=== PATIENT | female | born 1930 | race Caucasian/White ===

== ENCOUNTER 2018-12-16 09:26 | Day surgery (SDC) | payer MEDICARE, BC ==
[2018-12-16 10:34] VITALS: TEMP 98
[2018-12-16 11:11] VITALS: BP 147/67; PULSE 70; RESP 16
--- NOTE | 2018-12-16 12:07 | US ---
ULTRASOUND GUIDED FNA THYROID BIOPSY: CLINICAL HISTORY: Bilateral thyroid cysts FINDINGS: The procedure was explained to the patient. The risks, complications, benefits and alternatives were discussed and any questions were answered. Informed consent was obtained. Patient was placed supin e on the ultrasound table and prepped and draped in the usual sterile fashion. Utilizing a 25 gauge needle, access was achieved within the right thyroid cyst and subsequently left thyroid cyst and flui d was aspirated and sent to pathology for analysis. Patient was stable throughout the procedure. Pathology is pending. All elements of maximal barrier technique were utilized. IMPRESSION: 1. Successful ultrasound guided FNA thyroid biopsy.
== END 2018-12-16 11:05 | disposition home or self-care (01) ==
LOC: RADPROMAIN 09:26
PROVIDERS: ATTEND Otolaryngology
DX: E04.2 Nontoxic multinodular goiter (principal)
CPT/HCPCS: 10005; 10006; 88173; 88305

== ENCOUNTER 2019-04-09 11:44 | Emergency (ER) | payer MEDICARE, BC ==
[2019-04-09 12:02] VITALS: TEMP 98.1
[2019-04-09] MEDS ORDERED: KETOROLAC 60 MG/2 ML VIAL IM STA (12:53)
[2019-04-09] MEDS ORDERED: LIDOCAINE 5% PATCH TOPICAL STA (12:54)
--- NOTE | 2019-04-09 12:56 | ED ---
General Adult HPI - General Chief complaint: Back Pain/Injury Stated complaint: pain all over Time Seen by Provider: 04/09/19 11:55 Source: patient Mode of arrival: EMS Limitations: no limitations - History of Present Illness Initial comments: The patient is an 89-year-old female past medical history of rheumatoid arthritis and hypertension presents emergency room with reported thoracic back pain. She states that she has had this pain intermittent for one year. Reports that once every 3 months she will have an intermittent attack of this pain. Is described as a sharp shooting sensation which is worse with movement and better with rest. She was originally taking Tylenol for the pain. Her primary care physician put her on Ultram since her last episode which was 3 months ago. States that it has helped her symptoms she takes medication daily. States that she woke up today and she did take tramadol however didn't help her symptoms. She denies any weakness, numbness or tingling in her lower cherries. No unilateral numbness or weakness. Denies any saddle anesthesia. No bowel or bladder incontinence or retention. Denies any fevers or chills. No nausea or vomiting. Denies any abdominal pain. No changes in her bowel or bladder habits. She is able to ambulate without difficulty. She has had an MRI through [facility]. There are no alleviating, precipitating or modifying factors - Related Data Home Medications Medication Instructions Recorded Confirmed Acetaminophen [Tylenol] 325 mg PO Q4H 12/07/18 12/16/18 Betaxolol HCl [Betoptic S 0.5% 1 drop BOTH EYES BID 12/07/18 12/16/18 Ophth Soln] Calcium Carbonate [Tums] 500 mg PO DAILY 12/07/18 12/16/18 Cholecalciferol (Vitamin D3) 2,000 unit PO DAILY 12/07/18 12/16/18 [Vitamin D3] Clindamycin [Cleocin] 150 mg PO Q6H PRN 12/07/18 12/16/18 Losartan Potassium [Cozaar] 25 mg PO DAILY 12/07/18 12/16/18 Pantoprazole [Protonix] 40 mg PO DAILY 12/07/18 12/16/18 Simvastatin [Zocor] 20 mg PO HS 12/07/18 12/16/18 traMADol HCl [Ultram] 50 mg PO Q8HR PRN 12/07/18 12/16/18 Previous Rx's Medication Instructions Recorded Acetaminophen-Codeine 300-30mg 1 tab PO Q6HR PRN #12 tablet 04/09/19 [Tylenol #3] Hydrocodone/Acetaminophen [[place] 1 tab PO Q6HR PRN #12 tab 04/10/19 5-325] Allergies Allergy/AdvReac Type Severity Reaction Status Date / Time Penicillins Allergy Rash/Hives Verified 12/16/18 09:50 aspirin AdvReac Nausea & Verified 12/16/18 09:50 Vomiting Review of Systems ROS Statement: Those systems with pertinent positive or pertinent negative responses have been documented in the HPI. ROS Other: All systems not noted in ROS Statement are negative. Past Medical History Past Medical History: Eye Disorder, GERD/Reflux, GI Bleed, Hypertension, Rheumatoid Arthritis (RA), Thyroid Disorder Additional Past Medical History / Comment(s): back pain r/t bulging disc,minor kyphosis, arthritis History of Any Multi-Drug Resistant Organisms: None Reported Past Surgical History: Joint Replacement Past Anesthesia/Blood Transfusion Reactions: No Reported Reaction Past Psychological History: No Psychological Hx Reported Smoking Status: Former smoker Past Alcohol Use History: None Reported, Rare Past Drug Use History: None Reported General Exam Limitations: no limitations General appearance: alert, other (in pain) Head exam: Present: atraumatic, normocephalic, normal inspection Eye exam: Present: normal appearance, PERRL, EOMI. Absent: scleral icterus, conjunctival injection, periorbital swelling ENT exam: Present: normal exam, mucous membranes moist Neck exam: Present: normal inspection. Absent: tenderness, meningismus, lymphadenopathy Respiratory exam: Present: normal lung sounds bilaterally. Absent: respiratory distress, wheezes, rales, rhonchi, stridor Cardiovascular Exam: Present: regular rate, normal rhythm, normal heart sounds. Absent: systolic murmur, diastolic murmur, rubs, gallop, clicks GI/Abdominal exam: Present: soft, normal bowel sounds. Absent: distended, tenderness, guarding, rebound, rigid Extremities exam: Present: normal inspection, full ROM, normal capillary refill, other (5/5 muscle strength in the bilaterally lower extremities. 2+ radial and ulnar pulses). Absent: tenderness, pedal edema, joint swelling, calf tenderness Back exam: Present: muscle spasm (T8-T12. No step off or deformity appreciated), paraspinal tenderness Neurological exam: Present: alert, oriented X3, CN II-XII intact Psychiatric exam: Present: normal affect, normal mood Skin exam: Present: warm, dry, intact, normal color. Absent: rash Course Vital Signs 04/09/19 04/09/19 04/09/19 11:54 11:57 12:00 Temperature 98.1 F Pulse Rate 81 79 Respiratory 44 H 18 18 Rate Blood Pressure 141/84 141/81 141/84 O2 Sat by Pulse 97 96 95 Oximetry 04/09/19 04/09/19 04/09/19 12:30 13:00 13:30 Temperature Pulse Rate 74 80 Respiratory 9 L 26 H Rate Blood Pressure 142/65 139/60 156/60 O2 Sat by Pulse 97 Oximetry 04/09/19 04/09/19 14:00 15:11 Temperature Pulse Rate 70 Respiratory 18 Rate Blood Pressure 156/60 143/69 O2 Sat by Pulse 98 Oximetry EKG Findings - EKG Comments: EKG Findings:: EKG demonstrates a normal sinus rhythm with a that she can rate 84. UT interval 196. QRS 84. QTC 427. No acute ST segment elevations or depressions concerning for ischemic changes Medical Decision Making - Medical Decision Making Upon arrival the patient is placed into room 3. A thorough history and physical exam was performed. The patient has intact strength in her bilateral lower extremities with no inability to ambulate. I did provide the patient with a dose of Toradol IM. She is sent over for a CT of her thoracic and lumbar spine as I do not have access to her imaging studies. The patient is reevaluated and has had improvement in her pain to 5 out of 10. As she does continue to have some pain provided her with a Flexeril.CT of her thoracic and lumbar spine demonstrates no acute osseous of lesion. Diffuse uterine changes in both the thoracic and lumbar spines with moderate facet arthropathy in the lumbar spine. Grade 1 degenerative spondylosis listhesis of L4 and L5. I discussed this with the patient. She does have improvement in her symptoms. She is requesting something different for pain control as the Ultram is not working. She has taken Tylenol threes before in the past. I did give her a starter pack. I also provided her with a prescription for Tylenol threes at home. Side effect profile is discussed. She does sign an opiate start talking form. The patient will follow up with Dr. Davis for her continued back pain. If she has any new or worsening symptoms she should return to the emergency room. The patient was discharged in stable condition Disposition Clinical Impression: Thoracic back pain Disposition: HOME SELF-CARE Condition: Stable Instructions (If sedation given, give patient instructions): Acute Low Back Pain (ED) Prescriptions: Acetaminophen-Codeine 300-30mg [Tylenol #3] 1 tab PO Q6HR PRN #12 tablet PRN Reason: pain Is patient prescribed a controlled substance at d/c from ED?: Yes When asked, does pt state using other controlled substances?: Yes If prescribed controlled substance>3 days was MAPS reviewed?: Prescribed <3 Days If opioid is for acute pain is fill amount 7 days or less?: Yes If Rx opioid, was Start Talking consent form obtained?: Yes Referrals: Carlin Crawford MD [Primary Care Provider] - 1-2 days Radha Sargent DO [Doctor of Osteopathic Medicine] - 1-2 days Time of Disposition: 14:46
[2019-04-09] MEDS ORDERED: CYCLOBENZAPRINE 10 MG TAB PO STA (14:05)
--- NOTE | 2019-04-09 14:35 | CT ---
EXAMINATION TYPE: CT thor lumbar spine wo con DATE OF EXAM: 04/09/2019 COMPARISON: None. HISTORY: Mid back pain without injury. CT DLP: 978.3 mGycm Automated exposure control for dose reduction was used. FINDINGS: Visualized portions of the lungs are clear. Paraspinal soft tissues are normal. Vertebral body height and alignment are maintained. No fractures are identified. Within the thoracic spine, no discal protrusions are identified. Intervertebral foramina appear well maintained. There is minor hypertrophic spondylosis in the mid thoracic spine. There is a sclerotic f ocus in the posterior aspect of the T9 vertebral body on the left. This may represent a bone island. In this age group a sclerotic metastasis cannot be excluded. No other sclerotic lesions are seen. Int ervertebral foramina appear well maintained. In the lumbar spine, there is minimal, degenerative grade 1 spondylolisthesis of L4 and L5. At T12-L1, intervertebral foramina are well maintained. There is no significant compressive discopath y. Intervertebral foramina are well maintained. There is mild degenerative change in the facets. At L1-2, intervertebral foramina are well maintained. There is no significant compressive discopathy. There are hypertrophic changes in the facets. At L2-3, there is mild disc space loss. Intervertebral foramina are well maintained. There is a diffu se disc displacement. There are hypertrophic changes in the facets. L3-4, there is disc space loss and a vacuum phenomena present. Intervertebral foramina are well maint ained. There is a diffuse disc displacement. There are hypertrophic changes in the facets. At L4-5, there is a grade 1, degenerative spondylolisthesis of L4 and L5. There is a pseudodisc. Ther e is moderate central canal stenosis. There are hypertrophic changes in the facets. At L5-S1, the intervertebral foramina are well maintained. There is a diffuse disc displacement effac ing but not deforming the thecal sac. There are hypertrophic changes in the facets. IMPRESSION: 1. NO ACUTE OSSEOUS LESION. 2. DIFFUSE DEGENERATIVE CHANGE IN BOTH THE THORACIC AND LUMBAR SPINES WITH MODERATE FACET ARTHROPATHY IN THE LUMBAR SPINE. 3. 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
[2019-04-09] MEDS ORDERED: ACET/COD 300 MG/30 MG STARTER PACK 6 TAB BTL PO STA (14:43)
[2019-04-09 15:12] VITALS: BP 143/69; PULSE 70; RESP 18
== END 2019-04-09 15:11 | disposition home or self-care (01) ==
LOC: EC 11:44
DX: M54.6 Pain in thoracic spine (principal); M47.814 Spondylosis without myelopathy or radiculopathy, thoracic region; M46.96 Unspecified inflammatory spondylopathy, lumbar region; M43.16 Spondylolisthesis, lumbar region; K21.9 Gastro-esophageal reflux disease without esophagitis; I10 Essential (primary) hypertension; M06.9 Rheumatoid arthritis, unspecified; M19.90 Unspecified osteoarthritis, unspecified site; Z87.891 Personal history of nicotine dependence; Z88.0 Allergy status to penicillin; Z88.6 Allergy status to analgesic agent; Z79.891 Long term (current) use of opiate analgesic; Z79.899 Other long term (current) drug therapy; Z96.60 Presence of unspecified orthopedic joint implant
CPT/HCPCS: 72128; 72131; 99284; 96372; J1885

== ENCOUNTER 2019-04-10 09:20 | Emergency (ER) | payer MEDICARE, BC ==
--- NOTE | 2019-04-10 09:52 | ED ---
Back Pain HPI - General Chief Complaint: Back Pain/Injury Stated Complaint: Back pain Time Seen by Provider: 04/10/19 09:34 Source: patient, EMS Limitations: no limitations - History of Present Illness Initial Comments: Patient is an 89-year-old female with history of rheumatoid arthritis presenting to the emergency department with a chief complaint of back pain. Patient states she was in ED yesterday with aches exiting symptoms and the pain did not subside after she left the hospital. Patient reports she did take her Tylenol 3, however she had difficulty sleeping due to the pain. Patient does report his back and has been present intermittently for over a year. She does care frequent attacks that are very similar to this occasionally. Patient reports her last attack was roughly 3 months ago. She states the primary care prescribed her Ultram but she did not take it this time. Patient denies saddle anesthesia, urinary or bowel incontinence. Denies one-sided weakness or paresthesias. Denies any abdominal pain chest pain shortness of breath, headaches or blurry vision. - Related Data Home Medications Medication Instructions Recorded Confirmed Acetaminophen [Tylenol] 325 mg PO Q4H 12/07/18 12/16/18 Betaxolol HCl [Betoptic S 0.5% 1 drop BOTH EYES BID 12/07/18 12/16/18 Ophth Soln] Calcium Carbonate [Tums] 500 mg PO DAILY 12/07/18 12/16/18 Cholecalciferol (Vitamin D3) 2,000 unit PO DAILY 12/07/18 12/16/18 [Vitamin D3] Clindamycin [Cleocin] 150 mg PO Q6H PRN 12/07/18 12/16/18 Losartan Potassium [Cozaar] 25 mg PO DAILY 12/07/18 12/16/18 Pantoprazole [Protonix] 40 mg PO DAILY 12/07/18 12/16/18 Simvastatin [Zocor] 20 mg PO HS 12/07/18 12/16/18 traMADol HCl [Ultram] 50 mg PO Q8HR PRN 12/07/18 12/16/18 Previous Rx's Medication Instructions Recorded Acetaminophen-Codeine 300-30mg 1 tab PO Q6HR PRN #12 tablet 04/09/19 [Tylenol #3] Hydrocodone/Acetaminophen [[place] 1 tab PO Q6HR PRN #12 tab 04/10/19 5-325] Allergies Allergy/AdvReac Type Severity Reaction Status Date / Time Penicillins Allergy Rash/Hives Verified 12/16/18 09:50 aspirin AdvReac Nausea & Verified 12/16/18 09:50 Vomiting Review of Systems ROS Statement: Those systems with pertinent positive or pertinent negative responses have been documented in the HPI. ROS Other: All systems not noted in ROS Statement are negative. Past Medical History Past Medical History: Eye Disorder, GERD/Reflux, GI Bleed, Hypertension, Rheumatoid Arthritis (RA), Thyroid Disorder Additional Past Medical History / Comment(s): back pain r/t bulging disc,minor kyphosis, arthritis History of Any Multi-Drug Resistant Organisms: None Reported Past Surgical History: Joint Replacement Past Anesthesia/Blood Transfusion Reactions: No Reported Reaction Past Psychological History: No Psychological Hx Reported Smoking Status: Former smoker Past Alcohol Use History: None Reported, Rare Past Drug Use History: None Reported General Exam Limitations: no limitations General appearance: alert, in no apparent distress, obese Head exam: Present: atraumatic, normocephalic, normal inspection Eye exam: Present: normal appearance, PERRL, EOMI Pupils: Present: normal accommodation ENT exam: Present: normal exam, normal oropharynx Neck exam: Present: normal inspection, full ROM Respiratory exam: Present: normal lung sounds bilaterally Cardiovascular Exam: Present: regular rate, normal rhythm, normal heart sounds Extremities exam: Present: normal inspection, full ROM, normal capillary refill, other (+2 ulnar and radial pulses bilaterally.) Back exam: Present: normal inspection, full ROM, tenderness, paraspinal tenderness (Left-sided or spinal tenderness in the lower thoracic region.), vertebral tenderness (Lower thoracic and upper lumbar region) Neurological exam: Present: alert, oriented X3 Psychiatric exam: Present: normal affect, normal mood Skin exam: Present: warm, dry, intact, normal color Course Vital Signs 04/10/19 04/10/19 04/10/19 09:22 09:28 10:28 Temperature 97.5 F L Pulse Rate 70 70 72 Respiratory 18 20 20 Rate Blood Pressure 137/70 121/65 132/64 O2 Sat by Pulse 98 98 98 Oximetry 04/10/19 11:28 Temperature Pulse Rate 68 Respiratory 20 Rate Blood Pressure 128/61 O2 Sat by Pulse 98 Oximetry Disposition Clinical Impression: Mechanical back pain, Thoracic back pain Disposition: HOME SELF-CARE Condition: Stable Instructions (If sedation given, give patient instructions): Acute Low Back Pain (ED) Additional Instructions: Take prescribed medication as directed. Do not drive or operate heavy machinery when taking the medication. Please follow up with an software test specialist. Return to the emergency department if symptoms worsen. Prescriptions: Hydrocodone/Acetaminophen [[place] 5-325] 1 tab PO Q6HR PRN #12 tab PRN Reason: Pain Is patient prescribed a controlled substance at d/c from ED?: No Referrals: Carlin Crawford MD [Primary Care Provider] - 1-2 days Time of Disposition: 12:21
[2019-04-10] MEDS ORDERED: DEXAMETHASONE SOD PHOSPHATE 10 MG/ML 1 ML VIAL IM STA (09:57)
[2019-04-10] MEDS ORDERED: CYCLOBENZAPRINE 10 MG TAB PO STA (09:57)
[2019-04-10] MEDS ORDERED: HYDROcodone/APAP 5-325MG 1 EACH TAB PO STA (11:07)
[2019-04-10 12:49] VITALS: BP 148/47; PULSE 76; RESP 18; TEMP 98.2
== END 2019-04-10 12:47 | disposition home or self-care (01) ==
LOC: EC 09:20
DX: M54.6 Pain in thoracic spine (principal); I10 Essential (primary) hypertension; K21.9 Gastro-esophageal reflux disease without esophagitis; Z79.899 Other long term (current) drug therapy; Z88.0 Allergy status to penicillin; Z88.6 Allergy status to analgesic agent; Z87.891 Personal history of nicotine dependence
CPT/HCPCS: 99284; 96372; J1100

== ENCOUNTER 2019-05-05 16:37 | Emergency (ER) | payer MEDICARE, BC ==
--- NOTE | 2019-05-05 17:04 | ED ---
Back Pain HPI - General Chief Complaint: Back Pain/Injury Stated Complaint: back pain Time Seen by Provider: 05/05/19 16:47 Source: EMS Limitations: no limitations - History of Present Illness Initial Comments: 89-year-old female presenting today for chief complaint of mid back pain. Patient states she has kyphosis and has had chronic back pain for quite some time now. Patient states that she did a lot of house work 2 days ago and thinks she overdid it. She states that she then went to physical therapy today and this had caused increased pain. Patient states she did not have pain really for Tylenol No. 3. She states she had more pain relief with the [facility]. Patient denies any chest pain shortness of breath leg swelling she denies any nausea jaw pain arm pain and she does abdominal pain or shortness of breath. Patient has no other complaints she states she is positive this is her typical back pain. Patient has a loss of bowel bladder control urinary retention numbness tingling of the upper or lower extremities. Denies any weakness of the upper or lower extremity. Patient denies fevers. Patient states she transportation to the hospital She called EMS. Patient has no other complaints and appears well upon arrival - Related Data Home Medications Medication Instructions Recorded Confirmed Acetaminophen [Tylenol] 325 mg PO Q4H 12/07/18 12/16/18 Betaxolol HCl [Betoptic S 0.5% 1 drop BOTH EYES BID 12/07/18 12/16/18 Ophth Soln] Calcium Carbonate [Tums] 500 mg PO DAILY 12/07/18 12/16/18 Cholecalciferol (Vitamin D3) 2,000 unit PO DAILY 12/07/18 12/16/18 [Vitamin D3] Clindamycin [Cleocin] 150 mg PO Q6H PRN 12/07/18 12/16/18 Losartan Potassium [Cozaar] 25 mg PO DAILY 12/07/18 12/16/18 Pantoprazole [Protonix] 40 mg PO DAILY 12/07/18 12/16/18 Simvastatin [Zocor] 20 mg PO HS 12/07/18 12/16/18 traMADol HCl [Ultram] 50 mg PO Q8HR PRN 12/07/18 12/16/18 Previous Rx's Medication Instructions Recorded Acetaminophen-Codeine 300-30mg 1 tab PO Q6HR PRN #12 tablet 04/09/19 [Tylenol #3] Hydrocodone/Acetaminophen [[place] 1 tab PO Q6HR PRN #12 tab 04/10/19 5-325] HYDROcodone/APAP 5-325MG [[place] 1 tab PO Q6HR PRN 3 Days #12 tab 05/05/19 5-325] Allergies Allergy/AdvReac Type Severity Reaction Status Date / Time Penicillins Allergy Rash/Hives Verified 05/05/19 16:42 aspirin AdvReac Nausea & Verified 05/05/19 16:42 Vomiting Review of Systems ROS Statement: Those systems with pertinent positive or pertinent negative responses have been documented in the HPI. ROS Other: All systems not noted in ROS Statement are negative. Past Medical History Past Medical History: Eye Disorder, GERD/Reflux, GI Bleed, Hypertension, Rheumatoid Arthritis (RA), Thyroid Disorder Additional Past Medical History / Comment(s): back pain r/t bulging disc,minor kyphosis, arthritis History of Any Multi-Drug Resistant Organisms: None Reported Past Surgical History: Joint Replacement Past Anesthesia/Blood Transfusion Reactions: No Reported Reaction Past Psychological History: No Psychological Hx Reported Smoking Status: Former smoker Past Alcohol Use History: None Reported, Rare Past Drug Use History: None Reported General Exam - General Exam Comments Initial Comments: General: The patient is awake and alert, in no distress, and does not appear acutely ill. Eye: +3 mm pupils are equal, round and reactive to light, extra-ocular movements are intact. No nystagmus. There is normal conjunctiva bilaterally. No signs of icterus. Ears, nose, mouth and throat: There are moist mucous membranes and no oral lesions. Neck: The neck is supple, there is no tenderness or JVD. Cardiovascular: There is a regular rate and rhythm. No murmur, rub or gallop is appreciated. Respiratory: Lungs are clear to auscultation, respirations are non-labored, breath sounds are equal. No wheezes, stridor, rales, or rhonchi. Gastrointestinal: Soft, non-distended, non-tender abdomen without masses or o rganomegaly noted. There is no rebound or guarding present. No CVA tenderness. No pulsatile masses Musculoskeletal: No abnormal skin changes of the cervical thoracic or lumbar spine. No midline tenderness patient's paravertebral tenderness of the mid to lower thoracic spine. Normal ROM, no tenderness of the UE and LE b/l. Strength 5/5 of the UE and LE b/l. Sensation intact of UE and LE b/l. Radial and DP pulses equal bilaterally 2+. No LE edema. Patient ambulating without difficulty. Neurological: A&O x 3. CN II-XII intact rgossly, There are no obvious motor or sensory deficits. Coordination appears grossly intact. Speech is normal. Skin: Skin is warm and dry and no rashes or lesions are noted. Psychiatric: Cooperative, appropriate mood & affect, normal judgment. Limitations: no limitations Course Vital Signs 05/05/19 05/05/19 16:39 18:38 Temperature 98.6 F Pulse Rate 78 69 Respiratory 20 16 Rate Blood Pressure 169/77 145/66 O2 Sat by Pulse 97 100 Oximetry - Reevaluation(s) Reevaluation #1: Reevaluation after 1 dose of IM Dilaudid revealed patient requesting discharge stating pain was controlled. 05/05/19 Medical Decision Making - Medical Decision Making 89-year-old female presenting for back pain. This appears musculoskeletal history presents on examination. Patient amidst increase activity and states the pain occurred after physical therapy patient denied chest pain or shortness of breath. Patient states she is expresses for years and knows what this feels like. Patient is normal peripheral vascular examination. Patient has no complaints of chest pain or shortness of breath. Patient was treated symptomatically as CT was obtained within last month. No history of fevers. Patient ambulatory well appearing after symptom relief. Patient Requesting discharge. I do not feel that this is due to a vascular phenomenon or cardiac source at this time given patient appearance and history, PE findings. Patient was discharge with [facility] after discussing appropriate use. Patient discharged appearing well after discussing case with Dr. Shah. Disposition Clinical Impression: Back pain Disposition: HOME SELF-CARE Condition: Good Instructions (If sedation given, give patient instructions): Back Pain (ED) Additional Instructions: Please use medication as discussed. Please follow-up with family doctor in the next 2 days. Please return to emergency room if the symptoms increase or worsen or for any other concerns. Prescriptions: HYDROcodone/APAP 5-325MG [[place] 5-325] 1 tab PO Q6HR PRN 3 Days #12 tab PRN Reason: Severe Pain Is patient prescribed a controlled substance at d/c from ED?: No Referrals: Carlin Crawford MD [Primary Care Provider] - 1-2 days Time of Disposition: 18:06
[2019-05-05] MEDS ORDERED: HYDROmorphone 0.5 MG/0.5 ML SYRINGE IVP STA (17:05)
[2019-05-05] MEDS ORDERED: HYDROmorphone 0.5 MG/0.5 ML SYRINGE IM STA (17:16)
[2019-05-05] MEDS ORDERED: HYDROcodone/APAP 7.5-325MG 1 EACH TAB PO ONE (18:04)
[2019-05-05] MEDS ORDERED: ONDANSETRON ODT 4 MG TAB PO STA (18:24)
[2019-05-05 21:06] VITALS: BP 145/66; PULSE 69; RESP 16; TEMP 98.6
== END 2019-05-05 19:07 | disposition home or self-care (01) ==
LOC: EC 16:37
DX: M54.9 Dorsalgia, unspecified (principal); G89.29 Other chronic pain; M40.209 Unspecified kyphosis, site unspecified; K21.9 Gastro-esophageal reflux disease without esophagitis; I10 Essential (primary) hypertension; M06.9 Rheumatoid arthritis, unspecified; M19.90 Unspecified osteoarthritis, unspecified site; Z87.891 Personal history of nicotine dependence; Z88.0 Allergy status to penicillin; Z88.6 Allergy status to analgesic agent; Z79.891 Long term (current) use of opiate analgesic; Z79.899 Other long term (current) drug therapy; Z96.60 Presence of unspecified orthopedic joint implant; Z53.8 Procedure and treatment not carried out for other reasons
CPT/HCPCS: 99284; 96372; J1170

== ENCOUNTER 2020-01-04 12:30 | Emergency (ER) | payer MEDICARE, BC ==
[2020-01-04 12:39] VITALS: TEMP 98
[2020-01-04] MEDS ORDERED: SODIUM CHLORIDE 0.9% 500 ML 500 ML IV ONE (13:21)
[2020-01-04] MEDS ORDERED: MORPHINE SULFATE 4 MG/ML SYRINGE IVP STA (13:22)
[2020-01-04 14:02] LABS: Basophils % (A) 0 %; Eosinophils # (A) 0.1 k/uL (0-0.7); Eosinophils % (A) 2 %; HCT 41.1 % (34.0-46.0); HGB 13.2 gm/dL (11.4-16.0); Lymphocytes # (A) 1.3 k/uL (1.0-4.8); Lymphocytes % (A) 24 %; MCH 30.7 pg (25.0-35.0); MCHC 32.2 g/dL (31.0-37.0); MCV 95.3 fL (80.0-100.0); Mean Platelet Volume 6.9; Monocytes # (A) 0.2 k/uL (0-1.0); Monocytes % (A) 4 %; Neutrophils % (A) 69 %; Platelet Count 257 k/uL (150-450); RBC 4.31 m/uL (3.80-5.40); RDW 13.4 % (11.5-15.5); WBC 5.7 k/uL (3.8-10.6)
--- NOTE | 2020-01-04 14:05 | ED ---
General Adult HPI - General Chief complaint: Urogenital Stated complaint: Right sided back pain Time Seen by Provider: 01/04/20 12:47 Source: patient, RN notes reviewed Mode of arrival: ambulatory Limitations: physical limitation - History of Present Illness Initial comments: 89-year-old female presents to the emergency room for a chief complaint of rig ht-sided flank pain. Patient reports she has had right-sided flank pain since 4 AM this morning. States the pain is constant. Denies any abdominal pain. Admits to nausea denies vomiting. Patient reports she was seen at [facility] early this morning and had a computed tomography scan done. This showed mild right hydroureteronephrosis stable from previous examination without definite stones. Patient was recently treated for a urinary tract infection however there is no evidence of UTI from [facility]. PPatient has no other complaints at this time including shortness of breath, chest pain, abdominal pain, nausea or vomiting, headache, or visual changes. - Related Data Home Medications Medication Instructions Recorded Confirmed Betaxolol HCl [Betoptic S 0.5% 1 drop BOTH EYES BID 12/07/18 01/04/20 Ophth Soln] Losartan Potassium [Cozaar] 25 mg PO DAILY 12/07/18 01/04/20 Pantoprazole [Protonix] 40 mg PO DAILY 12/07/18 01/04/20 Acetaminophen Tab [Tylenol Tab] 1,500 mg PO HS 01/04/20 01/04/20 Calcium Carbonate/Vitamin D3 1 tab PO BID 01/04/20 01/04/20 [Calcium 600-Vit D3 200 Tablet] Clopidogrel [Plavix] 75 mg PO DAILY 01/04/20 01/04/20 Latanoprost [Xalatan 0.005%] 1 drop BOTH EYES HS 01/04/20 01/04/20 Simvastatin [Zocor] 40 mg PO HS 01/04/20 01/04/20 Previous Rx's Medication Instructions Recorded Ketorolac [Toradol] 10 mg PO BID PRN #6 tab 01/04/20 Allergies Allergy/AdvReac Type Severity Reaction Status Date / Time Penicillins Allergy Rash/Hives Verified 01/04/20 14:00 aspirin AdvReac Nausea & Verified 01/04/20 14:00 Vomiting Review of Systems ROS Statement: Those systems with pertinent positive or pertinent negative responses have been documented in the HPI. ROS Other: All systems not noted in ROS Statement are negative. Past Medical History Past Medical History: CVA/TIA, Eye Disorder, GERD/Reflux, GI Bleed, Hype rlipidemia, Hypertension, Rheumatoid Arthritis (RA), Thyroid Disorder Additional Past Medical History / Comment(s): back pain r/t bulging disc,minor kyphosis, arthritis,UTI History of Any Multi-Drug Resistant Organisms: None Reported Past Surgical History: Joint Replacement Past Anesthesia/Blood Transfusion Reactions: No Reported Reaction Past Psychological History: No Psychological Hx Reported Smoking Status: Never smoker Past Alcohol Use History: None Reported Past Drug Use History: None Reported General Exam Limitations: physical limitation General appearance: alert, in no apparent distress Head exam: Present: atraumatic, normocephalic, normal inspection Eye exam: Present: normal appearance, PERRL, EOMI. Absent: scleral icterus, conjunctival injection, periorbital swelling ENT exam: Present: normal exam, mucous membranes moist Neck exam: Present: normal inspection, full ROM. Absent: tenderness, meningismus, lymphadenopathy Respiratory exam: Present: normal lung sounds bilaterally. Absent: respiratory distress, wheezes, rales, rhonchi, stridor Cardiovascular Exam: Present: regular rate, normal rhythm, normal heart sounds. Absent: systolic murmur, diastolic murmur, rubs, gallop, clicks GI/Abdominal exam: Present: soft, normal bowel sounds. Absent: distended, tenderness, guarding, rebound, rigid Back exam: Present: CVA tenderness (R), paraspinal tenderness (Right-sided paraspinal tenderness around the thoracic spine.). Absent: CVA tenderness (L) Neurological exam: Present: alert Course Vital Signs 01/04/20 12:36 Temperature 98.0 F Pulse Rate 73 Respiratory 20 Rate Blood Pressure 155/76 O2 Sat by Pulse 98 Oximetry Medical Decision Making - Medical Decision Making Vitals are stable. CBC CMP unremarkable. Lipase was within normal limits at [facility]. Urinalysis is negative. Patient does have CVA tenderness. However she also has musculoskeletal tenderness around the right paraspinal thoracolumbar region. No chest pain or abdominal pain. Patient had computed tomography scan performed earlier this morning at another facility. This showed mild right [place] nephrosis stable from previous exam without definite stone however evaluation of distal ureter is limited. Patient was given morphine and had significant improvement in pain. Etiology is likely musculoskeletal versus renal colic. Patient will be given pain medication for home. I did recommend follow-up to urology given [place] nephrosis may be contributed to patient's pain. She reports that her used to see Dr. Parker and she would like to see him. I did give her referral. She will return here if pain is intolerable at home but is feeling well enough for discharge at this time. - Lab Data Result diagrams: 01/04/20 13:47 01/04/20 13:47 Lab Results 01/04/20 01/04/20 01/04/20 Range/Units 13:47 13:47 13:47 WBC 5.7 (3.8-10.6) k/uL RBC 4.31 (3.80-5.40) m/uL Hgb 13.2 (11.4-16.0) gm/dL Hct 41.1 (34.0-46.0) % MCV 95.3 (80.0-100.0) fL MCH 30.7 (25.0-35.0) pg MCHC 32.2 (31.0-37.0) g/dL RDW 13.4 (11.5-15.5) % Plt Count 257 (150-450) k/uL Neutrophils % 69 % Lymphocytes % 24 % Monocytes % 4 % Eosinophils % 2 % Basophils % 0 % Neutrophils # 4.0 (1.3-7.7) k/uL Lymphocytes # 1.3 (1.0-4.8) k/uL Monocytes # 0.2 (0-1.0) k/uL Eosinophils # 0.1 (0-0.7) k/uL Basophils # 0.0 (0-0.2) k/uL Sodium 134 L (137-145) mmol/L Potassium 4.1 (3.5-5.1) mmol/L Chloride 102 (98-107) mmol/L Carbon Dioxide 25 (22-30) mmol/L Anion Gap 7 mmol/L BUN 7 (7-17) mg/dL Creatinine 0.68 (0.52-1.04) mg/dL Est GFR (CKD-EPI)AfAm >90 (>60 ml/min/1.73 sqM) Est GFR (CKD-EPI)NonAf 79 (>60 ml/min/1.73 sqM) Glucose 109 H (74-99) mg/dL Plasma Lactic Acid [place] (0.7-2.0) mmol/L Calcium 9.4 (8.4-10.2) mg/dL Total Bilirubin 0.7 (0.2-1.3) mg/dL AST 28 (14-36) U/L ALT 20 (4-34) U/L Alkaline Phosphatase 83 (38-126) U/L Total Protein 6.7 (6.3-8.2) g/dL Albumin 4.2 (3.5-5.0) g/dL Urine Color Light Yellow Urine Appearance Clear (Clear) Urine pH 6.0 (5.0-8.0) Ur Specific [place] 1.010 (1.001-1.035) Urine Protein Negative (Negative) Urine Glucose (UA) Negative (Negative) Urine Ketones Negative (Negative) Urine Blood Negative (Negative) Urine Nitrite Negative (Negative) Urine Bilirubin Negative (Negative) Urine Urobilinogen <2.0 (<2.0) mg/dL Ur Leukocyte Esterase Negative (Negative) 01/04/20 Range/Units 13:47 WBC (3.8-10.6) k/uL RBC (3.80-5.40) m/uL Hgb (11.4-16.0) gm/dL Hct (34.0-46.0) % MCV (80.0-100.0) fL MCH (25.0-35.0) pg MCHC (31.0-37.0) g/dL RDW (11.5-15.5) % Plt Count (150-450) k/uL Neutrophils % % Lymphocytes % % Monocytes % % Eosinophils % % Basophils % % Neutrophils # (1.3-7.7) k/uL Lymphocytes # (1.0-4.8) k/uL Monocytes # (0-1.0) k/uL Eosinophils # (0-0.7) k/uL Basophils # (0-0.2) k/uL Sodium (137-145) mmol/L Potassium (3.5-5.1) mmol/L Chloride (98-107) mmol/L Carbon Dioxide (22-30) mmol/L Anion Gap mmol/L BUN (7-17) mg/dL Creatinine (0.52-1.04) mg/dL Est GFR (CKD-EPI)AfAm (>60 ml/min/1.73 sqM) Est GFR (CKD-EPI)NonAf (>60 ml/min/1.73 sqM) Glucose (74-99) mg/dL Plasma Lactic Acid [place] 0.9 (0.7-2.0) mmol/L Calcium (8.4-10.2) mg/dL Total Bilirubin (0.2-1.3) mg/dL AST (14-36) U/L ALT (4-34) U/L Alkaline Phosphatase (38-126) U/L Total Protein (6.3-8.2) g/dL Albumin (3.5-5.0) g/dL Urine Color Urine Appearance (Clear) Urine pH (5.0-8.0) Ur Specific [place] (1.001-1.035) Urine Protein (Negative) Urine Glucose (UA) (Negative) Urine Ketones (Negative) Urine Blood (Negative) Urine Nitrite (Negative) Urine Bilirubin (Negative) Urine Urobilinogen (<2.0) mg/dL Ur Leukocyte Esterase (Negative) Disposition Clinical Impression: Hydronephrosis, Back pain Disposition: HOME SELF-CARE Condition: Good Instructions (If sedation given, give patient instructions): Flank Pain (ED) Additional Instructions: Please take Toradol as directed for pain. You may also take Tylenol 3 but this may increase risk of falls so be cautious. Follow-up with urology and primary care. Return to the emergency room for any worsening symptoms or if pain is intolerable at home with pain medication. Prescriptions: Ketorolac [Toradol] 10 mg PO BID PRN #6 tab PRN Reason: Pain Is patient prescribed a controlled substance at d/c from ED?: No Referrals: Carlin Crawford MD [Primary Care Provider] - 1-2 days Rickie Bertrand MD [STAFF PHYSICIAN] - 1-2 days Time of Disposition: 14:45
[2020-01-04 14:10] LABS: Appearance,Urine Clear (Clear); Bilirubin,Urine Negative (Negative); Blood,Urine Negative (Negative); Color,Urine Light Yellow; Glucose,Urine (UA) Negative (Negative); Ketones,Urine Negative (Negative); Leukocyte Esterase,Urine Negative (Negative); Nitrite,Urine Negative (Negative); Protein,Urine Negative (Negative); Urobilinogen,Urine <2.0 mg/dL (<2.0)
[2020-01-04 14:12] LABS: ALT 20 U/L (4-34); AST 28 U/L (14-36); African American GFR (CKD) >90 (>60 ml/min/1.73 sqM); Albumin 4.2 g/dL (3.5-5.0); Alkaline Phosphatase 83 U/L (38-126); Anion Gap 7 mmol/L; Blood Urea Nitrogen 7 mg/dL (7-17); Calcium 9.4 mg/dL (8.4-10.2); Carbon Dioxide 25 mmol/L (22-30); Chloride 102 mmol/L (98-107); Glucose 109 mg/dL (74-99); Non-African American GFR(CKD) 79 (>60 ml/min/1.73 sqM); Potassium 4.1 mmol/L (3.5-5.1); Sodium 134 mmol/L (137-145); Total Bilirubin 0.7 mg/dL (0.2-1.3); Total Protein 6.7 g/dL (6.3-8.2)
[2020-01-04] MEDS ORDERED: ACET/COD 300 MG/30 MG STARTER PACK 6 TAB BTL PO STA (14:46)
[2020-01-04 15:23] VITALS: BP 122/74; PULSE 68; RESP 18
== END 2020-01-04 15:32 | disposition home or self-care (01) ==
LOC: EC 12:30
DX: N13.30 Unspecified hydronephrosis (principal); K21.9 Gastro-esophageal reflux disease without esophagitis; E78.5 Hyperlipidemia, unspecified; I10 Essential (primary) hypertension; Z79.899 Other long term (current) drug therapy; Z88.0 Allergy status to penicillin; Z88.6 Allergy status to analgesic agent; Z86.73 Personal history of transient ischemic attack (TIA), and cerebral infarction without residual deficits
CPT/HCPCS: 36415; 80053; 83605; 85025; 81003; 99283; 96374; J2270

== ENCOUNTER → 2020-01-22 | Outpatient (CLI) | payer MEDICARE, BC ==
--- NOTE | 2020-01-22 15:44 | US ---
EXAMINATION TYPE: US kidneys/renal and bladder DATE OF EXAM: 01/22/2020 COMPARISON: CT lumbar spine April 09, 2019 CLINICAL HISTORY: N13.30 hydronephrosis. EXAM MEASUREMENTS: Right Kidney: 10.0 x 3.5 x 4.2cm Left kidney: 9.7 x 5.3 x 4.5 cm Patient of large body habitus. Right Kidney: No hydronephrosis or masses seen Left Kidney: No hydronephrosis or masses seen, upper pole somewhat obscured by overlying bowel. Bladder: wnl There is no evidence for hydronephrosis at this point in time. No nephrolithiasis is seen. No bala s are identified. The urinary bladder is satisfactorily distended. Bilateral ureteral jets are not seen. IMPRESSION: No hydronephrosis noted bilaterally.
== END | disposition home or self-care (01) ==
LOC: RADUSWWP 14:50
PROVIDERS: ATTEND Urology
DX: N13.30 Unspecified hydronephrosis (principal)
CPT/HCPCS: 76770

== ENCOUNTER → 2020-05-28 | Outpatient (CLI) | payer MEDICARE, BC ==
--- NOTE | 2020-05-28 14:37 | CT ---
EXAMINATION TYPE: CT angio head DATE OF EXAM: 05/28/2020 1:39 PM COMPARISON: None HISTORY: Speech disturbance. CT DLP: 1442.8 mGycm Automated exposure control for dose reduction was used. TECHNIQUE: Performed with IV Contrast, patient injected with 100 mL of Isovue 370. Three-dimensional reconstruct ions performed through the [place] on an alternate station. . FINDINGS: Anterior, posterior circulation are patent. There is no evident dissection, aneurysm, or embolus. Basal ganglia calcifications present within the brain. Periventricular white matter shows patchy low attenuation. IMPRESSION: AGE-RELATED CHANGES OF ATROPHY AND CHRONIC SMALL VESSEL ISCHEMIA. PATENT [place].
== END ==
LOC: RADCTMAIN 12:11
PROVIDERS: ATTEND Psychiatry & Neurology Neurology
DX: I67.82 Cerebral ischemia (principal)
CPT/HCPCS: 82565; 84520; 70496; 36415; Q9967

== ENCOUNTER 2020-05-31 12:19 | Emergency (ER) | payer MEDICARE, BC ==
[2020-05-31 12:24] VITALS: TEMP 97.8
[2020-05-31] MEDS ORDERED: ONDANSETRON 4 MG/2 ML VIAL IVP STA (13:06)
[2020-05-31] MEDS ORDERED: HYDROmorphone 0.5 MG/0.5 ML SYRINGE IVP STA (13:06)
--- NOTE | 2020-05-31 15:11 | XR ---
Thoracic spine HISTORY: Exacerbation of chronic pain Frontal lateral views of the thoracic spine submitted on [address] scan 04/09/2019 There is multilevel spondylosis. Thoracic vertebral bodies show preserved height and alignment, bone mineralization may be reduced. Loss of disc height at intervertebral levels is noted especially in th e midthoracic spine. IMPRESSION: Degenerative disc disease.
[2020-05-31] MEDS ORDERED: HYDROmorphone 1 MG/ML 1 ML SYRINGE IVP STA (15:39)
[2020-05-31] MEDS ORDERED: ACET/COD 300 MG/30 MG STARTER PACK 6 TAB BTL PO STA (15:39)
--- NOTE | 2020-05-31 15:41 | ED ---
Back Pain HPI - General Chief Complaint: Back Pain/Injury Stated Complaint: Back pain Time Seen by Provider: 05/31/20 12:29 Source: patient Limitations: no limitations - History of Present Illness Initial Comments: 89-year-old presenting today for chief complaint of mid back pain. Patient states she has struggled with back pain chronically on and off for years. She states she sees Dr. Russell epidural injections. Patient states that last night she had increasing mid back pain she states this in the area where she typically has exacerbations of her chronic mid-to low back pain. Patient states that she was supposed to have an epidural injection within the next few weeks was unable to get an appointment. Patient denies any new trauma fall she denies chest pain shortness of breath loss of bowel bladder control urinary retention loss of sensation or weakness of the lower extremities, patient denies falls trauma IV drug use history of cancer or fevers. Patient states she is still able to weight-bear and ambulate however this increases the pain she states she is difficulty getting comfortable night. Patient denies dysuria urgency frequency hematuria she denies any nausea vomiting. Remaining review of systems negative upon arrival patient appears well nontoxic no acute distress. - Related Data Home Medications Medication Instructions Recorded Confirmed Betaxolol HCl [Betoptic S 0.5% 1 drop BOTH EYES BID 12/07/18 05/31/20 Ophth Soln] Losartan Potassium [Cozaar] 25 mg PO DAILY 12/07/18 05/31/20 Pantoprazole [Protonix] 40 mg PO DAILY 12/07/18 05/31/20 Acetaminophen Tab [Tylenol Tab] 500 mg PO Q6H PRN 01/04/20 05/31/20 Calcium Carbonate/Vitamin D3 1 tab PO DAILY 01/04/20 05/31/20 [Calcium 600-Vit D3 200 Tablet] Clopidogrel [Plavix] 75 mg PO DAILY 01/04/20 05/31/20 Latanoprost [Xalatan 0.005%] 1 drop BOTH EYES HS 01/04/20 05/31/20 Simvastatin [Zocor] 40 mg PO HS 01/04/20 05/31/20 Allergies Allergy/AdvReac Type Severity Reaction Status Date / Time Penicillins Allergy Rash/Hives Verified 05/31/20 15:43 aspirin AdvReac Nausea & Verified 05/31/20 15:43 Vomiting Review of Systems ROS Statement: Those systems with pertinent positive or pertinent negative responses have been documented in the HPI. ROS Other: All systems not noted in ROS Statement are negative. Past Medical History Past Medical History: CVA/TIA, Eye Disorder, GERD/Reflux, GI Bleed, Hyperlipidemia, Hypertension, Rheumatoid Arthritis (RA), Thyroid Disorder Additional Past Medical History / Comment(s): back pain r/t bulging disc,minor kyphosis, arthritis,UTI History of Any Multi-Drug Resistant Organisms: None Reported Past Surgical History: Joint Replacement Past Anesthesia/Blood Transfusion Reactions: No Reported Reaction Past Psychological History: No Psychological Hx Reported Smoking Status: Never smoker Past Alcohol Use History: None Reported Past Drug Use History: None Reported General Exam - General Exam Comments Initial Comments: General: The patient is awake and alert, in no distress Eye: Pupils are equal, round and reactive to light, extra-ocular movements are intact. No nystagmus. There is normal conjunctiva bilaterally. No signs of icterus. Cardiovascular: There is a regular rate and rhythm. No murmur, rub or gallop is appreciated. Respiratory: Lungs are clear to auscultation, respirations are non-labored, breath sounds are equal. No wheezes, stridor, rales, or rhonchi. Gastrointestinal: Soft, non-distended, non-tender abdomen without masses or organomegaly noted. There is no rebound or guarding present. Musculoskeletal: Skin no changes, rashes. Pain to palpation midline of the mid thoracic spine (pt winces), some paraspinal tenderness as well. Normal ROM, of the LE b/l Strength 5/5 of the LE b/l. Sensation intact of the LE b/l including the saddle region. Radial pulses equal bilaterally 2+. Ambulating without difficulty. Neurological: A&O x 3. CN II-XII intact grossly, There are no obvious motor or sensory deficits. Coordination appears grossly intact. Speech is normal. Skin: Skin is warm and dry and no rashes or lesions are noted. Psychiatric: Cooperative, appropriate mood & affect, normal judgment. Limitations: no limitations Course Vital Signs 05/31/20 05/31/20 12:21 16:45 Temperature 97.8 F Pulse Rate 62 88 Respiratory 22 18 Rate Blood Pressure 159/83 145/64 O2 Sat by Pulse 96 96 Oximetry Medical Decision Making - Medical Decision Making 10-year-old female presenting today for chief complaint of mid back pain. Patient states she has chronic mid back pain. Worsen for the past day. Patient states she is supposed to get an epidural. Patient sees pain management for this complaint. Neurovascularly intact denies loss of bowel bladder control urinary retention she denies any fevers IV drug use history of cancer she denies any weakness/sensation deficits of the LE b/l. Patient pain improved. Patient xr (-) which was obtained secondary to advanced age. Patient discharge with pain management f/u. Disposition Clinical Impression: Back pain Disposition: HOME SELF-CARE Condition: Good Instructions (If sedation given, give patient instructions): Degenerative Disc Disease (ED) Additional Instructions: Please use medication as discussed. Please follow-up with family doctor in the next 2 days. Please return to emergency room if the symptoms increase or worsen or for any other concerns. Is patient prescribed a controlled substance at d/c from ED?: No Referrals: Carlin Crawford MD [Primary Care Provider] - 1-2 days Time of Disposition: 15:40
[2020-05-31 16:46] VITALS: BP 145/64; PULSE 88; RESP 18
== END 2020-05-31 16:46 | disposition home or self-care (01) ==
LOC: EC 12:19
DX: M54.6 Pain in thoracic spine (principal); I10 Essential (primary) hypertension; K21.9 Gastro-esophageal reflux disease without esophagitis; Z79.02 Long term (current) use of antithrombotics/antiplatelets; Z86.73 Personal history of transient ischemic attack (TIA), and cerebral infarction without residual deficits; E78.5 Hyperlipidemia, unspecified
CPT/HCPCS: 72072; 99283; 96374; 96375; 96376; J2405; J1170 ×2

== ENCOUNTER 2020-08-19 13:40 | Emergency (ER) | payer MEDICARE, BC ==
[2020-08-19 14:20] VITALS: BP 161/83; PULSE 78; RESP 18; TEMP 98.6
--- NOTE | 2020-08-19 15:03 | ED ---
Back Pain [facility] - General Chief Complaint: Back Pain/Injury Stated Complaint: Back Pain Time Seen by Provider: 08/19/20 14:38 Source: patient, RN notes reviewed Mode of arrival: ambulatory Limitations: no limitations - History of Present Illness Initial Comments: Well-appearing, alert and oriented 4, pleasant 89-year-old white female presents to the emergency room with friend complaining of upper back pain chronic in nature. Patient states that she had a nerve ablation on August [address] [place] [address] Russell, and is scheduled to see him again on Wednesday Pt's pain is uncontrolled since Wednesday. Patient states that normally she comes to the hospital and gave her a shot of morphine and resolves her pain. Patient states she tried to open [place] 5 mg at 10:00 with no relief. Patient denies any saddle anesthesia. Patient has a steady gait. Patient denies any nausea vomiting or diarrhea. Patient states that the pain is at the site of the injections of her thoracic spine only. MD Complaint: back pain -: year(s) (States pain started on Wednesday while doing laundry.) Similar Symptoms Previously: Yes Radiation: none Severity: severe Severity scale (1-10): 8 Quality: other (Constant) Consistency: constant Improves With: supine Worsens With: movement Context: other (Chronic degenerative joint disease) Associated Symptoms: denies other symptoms Treatments Prior to Arrival: other ([place] 2 at 10:00) - Related Data Home Medications Medication Instructions Recorded Confirmed Betaxolol HCl [Betoptic S 0.5% 1 drop BOTH EYES BID 12/07/18 05/31/20 Ophth Soln] Losartan Potassium [Cozaar] 25 mg PO DAILY 12/07/18 05/31/20 Pantoprazole [Protonix] 40 mg PO DAILY 12/07/18 05/31/20 Acetaminophen Tab [Tylenol Tab] 500 mg PO Q6H PRN 01/04/20 05/31/20 Calcium Carbonate/Vitamin D3 1 tab PO DAILY 01/04/20 05/31/20 [Calcium 600-Vit D3 200 Tablet] Clopidogrel [Plavix] 75 mg PO DAILY 01/04/20 05/31/20 Latanoprost [Xalatan 0.005%] 1 drop BOTH EYES HS 01/04/20 05/31/20 Simvastatin [Zocor] 40 mg PO HS 01/04/20 05/31/20 Allergies Allergy/AdvReac Type Severity Reaction Status Date / Time Penicillins Allergy Rash/Hives Verified 08/19/20 14:20 aspirin AdvReac Nausea & Verified 08/19/20 14:20 Vomiting Review of Systems ROS Statement: Those systems with pertinent positive or pertinent negative responses have been documented in the HPI. ROS Other: All systems not noted in ROS Statement are negative. Past Medical History Past Medical History: CVA/TIA, Eye Disorder, GERD/Reflux, GI Bleed, Hyperlipidemia, Hypertension, Rheumatoid Arthritis (RA), Thyroid Disorder Additional Past Medical History / Comment(s): back pain r/t bulging disc,minor kyphosis, arthritis,UTI History of Any Multi-Drug Resistant Organisms: None Reported Past Surgical History: Joint Replacement Past Anesthesia/Blood Transfusion Reactions: No Reported Reaction Past Psychological History: No Psychological Hx Reported Smoking Status: Never smoker Past Alcohol Use History: None Reported Past Drug Use History: None Reported General Exam Limitations: no limitations General appearance: alert, in no apparent distress Head exam: Present: atraumatic, normocephalic, normal inspection Eye exam: Present: normal appearance, PERRL, EOMI. Absent: scleral icterus, conjunctival injection, periorbital swelling Pupils: Present: normal accommodation ENT exam: Present: normal exam, normal oropharynx, mucous membranes moist Neck exam: Present: normal inspection, full ROM. Absent: tenderness, meningismus, lymphadenopathy, thyromegaly Respiratory exam: Present: normal lung sounds bilaterally. Absent: respiratory distress, wheezes, rales, rhonchi, stridor Cardiovascular Exam: Present: regular rate, normal rhythm, normal heart sounds. Absent: systolic murmur, diastolic murmur, rubs, gallop, clicks GI/Abdominal exam: Present: soft, normal bowel sounds. Absent: distended, tenderness, guarding, rebound, rigid, mass, pulsatile mass Extremities exam: Present: normal inspection, full ROM, normal capillary refill. Absent: tenderness, pedal edema, joint swelling, calf tenderness Back exam: Present: normal inspection, other (8 small injection sites paraspinal thoracic, no erythema or areas of fluctuance) Neurological exam: Present: alert, oriented X3, CN II-XII intact, normal gait Psychiatric exam: Present: normal affect, normal mood Skin exam: Present: warm, dry, intact, normal color. Absent: rash Course Vital Signs 08/19/20 14:15 Temperature 98.6 F Pulse Rate 78 Respiratory 18 Rate Blood Pressure 161/83 O2 Sat by Pulse 98 Oximetry Medical Decision Making - Medical Decision Making 89-year-old female presents emergency room with chronic upper back pain. Patient has history of degenerative joint disease and has recently had a nerve ablation by in [place] on August 12. Patient states that she still has the injection sites which are healing well, tenderness at the site. There is no erythema or fluctuance at this site. This is chronic pain condition that patient is treated for but states she occasionally needs additional medication for pain relief. Patient given steroid injection Decadron and morphine, will be discharged to follow up with her primary care doctor for continuation of care. Patient states she has an appointment with her doctor on Wednesday next week. Patient had an x-ray of the thoracic spine on May 31 of this year. Patient denies any trauma or injury or fall. Patient is ambulatory in the rodgers with steady gait has no saddle anesthesia no incontinence of bowel or bladder. Patient given a dose of morphine as requested along with Decadron for inflammation. Patient states she was wishing for something stronger but agreed to take her scheduled [place] prior to discharge. Case discussed with Dr Shah. Disposition Clinical Impression: Thoracic back pain Disposition: HOME SELF-CARE Condition: Good Instructions (If sedation given, give patient instructions): Chronic Back Pain (DC) Is patient prescribed a controlled substance at d/c from ED?: No Referrals: Carlin Crawford MD [Primary Care Provider] - 1-2 days Time of Disposition: 15:52
[2020-08-19] MEDS ORDERED: DEXAMETHASONE SOD PHOSPHATE 10 MG/ML 1 ML VIAL IM STA (15:10)
[2020-08-19] MEDS ORDERED: MORPHINE SULFATE 4 MG/ML SYRINGE IM STA (15:10)
[2020-08-19] MEDS ORDERED: HYDROcodone/APAP 5-325MG 1 EACH TAB PO STA (15:56)
== END 2020-08-19 16:18 | disposition home or self-care (01) ==
LOC: EC 13:40
DX: M54.6 Pain in thoracic spine (principal); K21.9 Gastro-esophageal reflux disease without esophagitis; E78.5 Hyperlipidemia, unspecified; I10 Essential (primary) hypertension; M06.9 Rheumatoid arthritis, unspecified; Z86.73 Personal history of transient ischemic attack (TIA), and cerebral infarction without residual deficits; Z88.0 Allergy status to penicillin
CPT/HCPCS: 96372; 99283